=== PATIENT | female | born 1995 | race Two or more races ===

== ENCOUNTER 2025-05-27 16:14 | Emergency (ER) | payer OTHER ==
[~2025-05-27] VITALS: Ht 165.1 cm; Wt 97.1 kg
[2025-05-27] MEDS ORDERED: ORPHENADRINE CITRATE 30 MG/ML AMPUL IM ONE (17:30)
[2025-05-27 18:07] LABS: BASO % 0.7 % (0.1-1.2); EOS # 0.08 (0.04-0.54); EOS % 1.1 % (0.7-7.0); LYMPH # 2.31 (1.18-3.74); LYMPH % 30.5 % (19.3-53.1); MEAN PLATELET VOLUME 10.70 fl (9.4-12.4); MONO # 0.61 (0.24-0.82); MONO % 8.0 % (4.7-12.5); NEUT # 4.51 (1.56-6.13); NEUT % 59.4 % (34.0-71.1); RED CELL DISTRIBUTION WIDTH 14.1 % (11.6-14.4)
[2025-05-27 18:33] LABS: ALT/SGPT 32 U/L (12-78); AST/SGOT 20 U/L (15-37); BILIRUBIN TOTAL 0.40 mg/dL (0.3-1.2); BUN CREA RATIO 12 (7.0-25.0); CREATININE SERUM 0.76 mg/dL (0.55-1.02); GFR 89.36; GLOBULINA 4.2 G/DL (2.4-3.5); GLUCOSE FASTING 79 mg/dL (65-100); OSMOLALITY SERUM 277 MOSM/KG (275-295)
[2025-05-27 18:34] LABS: HCG QUANTITATIVE < 1 mUI/mL (1-3)
[2025-05-27] MEDS ORDERED: LEVSIN/SL0.125 MG SL (20:31)
[2025-05-27] MEDS ORDERED: PROTONIX40 MG PO (20:31)
== END 2025-05-27 20:38 | disposition home or self-care (01) ==
LOC: ER 16:25
PROVIDERS: General Practice
DX: R10.13 Epigastric pain (principal); K76.0 Fatty (change of) liver, not elsewhere classified